=== PATIENT | female | born 1945 | race African-American/Black ===

== ENCOUNTER 2016-07-24 07:42 | Inpatient (IN) | payer OTHER ==
[2016-07-24 08:35] LABS: URINE MICROSCOPIC NEEDED? NO; URINE SOURCE CLEAN CATCH
[2016-07-24 08:44] LABS: BILIRUBIN URINE NEGATIVE (NEGATIVE); BLOOD URINE NEGATIVE (NEGATIVE); CLARITY CLEAR (CLEAR); COLOR YELLOW; GLUCOSE URINE NEGATIVE (NEGATIVE); LEUKOCYTES URINE NEGATIVE (NEGATIVE); NITRITE URINE NEGATIVE (NEGATIVE); PROTEIN URINE NEGATIVE (NEGATIVE); SP GRAVITY URINE 1.005; UROBILINOGEN URINE NORMAL
--- NOTE | 2016-07-24 08:44 | PROVIDER DOCUMENTATION ---
HPI-Abdominal Pain/GI Problem - General Source: patient - History of Present Illness-ABD Nature of Presenting Problems: pt has left side abdominal pain x 2 days. no n/v/d, fever, or dysuria. no history of CA or injury to abdomen. Abdominal Pain Onset Location: reports: LUQ, LLQ Quality of Pain: reports: aching Severity in ED: reports: moderate Onset/Duration: reports: gradual, 2 days ago Timing: reports: still present, constant Activities at Onset: reports: none Modifying Factors: improves with: nothing Associated Symptoms: denies: chest pain, cough, diaphoresis, diarrhea, fever/ chills, genitourinary problems, loss of appetite, nausea, vomiting Similar Symptoms Previously?: No Recently seen or treated by another doctor?: No <Fco Laureano - Last Filed: 07/24/16 08:41> <Rojelio Barrios - Last Filed: 07/24/16 12:38> - General Chief Complaint: Flank Pain Stated Complaint: SIDE PAIN Time Seen by Provider: 07/24/16 08:41 Allergies/Adverse Reactions: Patient Allergies Allergy/AdvReac Type Severity Reaction Status Date / Time No Known Allergies Allergy Verified 07/24/16 07:52 Home Medications: Home Medication List Medication Instructions Recorded Confirmed Last Taken Type Home Meds Unobtainable 07/24/16 07/24/16 Unknown History Review of Systems - Adult - REVIEW OF SYSTEMS - ADULT Constitutional: denies: chills, fever Eyes: reports: no symptoms reported Ears, Nose, Mouth & Throat: reports: no symptoms reported Cardiovascular: denies: chest pain, palpitations, syncope Respiratory: denies: cough, dyspnea on exertion, shortness of breath, wheezing Gastrointestinal: reports: abdominal pain. denies: hematemesis, diarrhea, nausea, rectal bleeding, vomiting Genitourinary: denies: dysuria, frequency, hesitency Musculoskeletal: reports: no symptoms reported Integumentary: reports: no symptoms reported Neurological: reports: no symptoms reported Psychiatric: reports: no symptoms reported Endocrine: reports: no symptoms reported Hematologic/Lymphatic: reports: no symptoms reported Allergic/Immunologic: reports: no symptoms reported All Other Systems: Reviewed and Negative <Fco Laureano - Last Filed: 07/24/16 08:41> Past History - Adult - PAST MEDICAL HISTORY-ADULT Review of Records: reports: Old Records Reviewed, Nursing Assessment Review, Medications Reviewed Major Childhood Illnesses: reports: denies history Cardiovascular: reports: denies history Respiratory: reports: denies history Gastrointestinal: reports: denies history Obstetrical/Gynecological: reports: denies history Genitourinary: reports: denies history Musculoskeletal: reports: denies history, other (right arm deformity with contracture) Neurological: reports: denies history Endocrine/Immune: reports: denies history Other Conditions: reports: denies history - PRIOR SURGERIES/PROCEDURES Surgical/Procedure History: reports: appendectomy, cholecystectomy, hysterectomy - PRIOR HOSPITALIZATIONS Prior Hospitalizations: reports: none - IMMUNIZATION STATUS Childhood Immunizations: See Nurse Assessment Flu Vaccine: See Nurse Assessment - FAMILY HISTORY Family History: reviewed, not pertinent - SOCIAL HISTORY Smoking: non-smoker Living Situation: family <Fco Laureano - Last Filed: 07/24/16 08:41> Physical Exam-General - PHYSICAL EXAM-ADULT Initial Vital Signs Reviewed: Yes - CONSTITUTIONAL General Appearance: alert, no apparent distress, obese - EYES Eyes: PERRL/EOMI, pink conjunctivae, fundi clear, no AV nicking - HEAD, EARS, NOSE, MOUTH & THROAT HENMT: normocephalic/atraumatic, moist mucous membranes, normal ENT inspection - NECK Neck: full range of motion, normal inspection - RESPIRATORY Respiratory: lungs clear, normal breath sounds, no respiratory distress, no accessory muscle use - CARDIOVASCULAR Cardiovascular: regular rate, rhythm, no edema, no murmur - GASTROINTESTINAL (ABDOMEN) Abdominal Exam: normal bowel sounds, soft, no organomegaly, no pulsatile mass - MUSCULOSKELETAL Back Exam: no CVA tenderness, no vertebral tenderness Extremity: normal range of motion, normal inspection, no pedal edema - SKIN Integumentary: normal color, warm/dry - NEUROLOGIC Neurologic: grossly normal, no motor/sensory deficits - PSYCHIATRIC Psych/Mental Status: normal mood/affect, normal thought content, normal thought process, oriented x 3 <Fco Laureano - Last Filed: 07/24/16 08:41> Progress - PLAN OF CARE/RESULTS Progress/Plan/Lab Results: plan of care-labs, xray 1229-hospitalist will be paged Vital Signs Temp Pulse Resp BP Pulse Ox 07/24/16 11:05 98.1 F 68 14 179/79 98 07/24/16 07:48 97.8 F 76 18 185/89 99 No Known Allergies Allergy (Verified 07/24/16 07:52) Home Meds Unobtainable 07/24/16 Laboratory 07/24/16 07/24/16 07/24/16 09:30 09:30 08:24 WBC 13.26 H RBC 4.36 Hgb 12.8 Hct 39.9 MCV 91.5 MCH 29.4 MCHC 32.1 L RDW Std Deviation 15.0 H Plt Count 305 MPV 10.8 H Immature Gran % (Auto) 0.2 Neut % (Auto) 68.6 Lymph % (Auto) 23.5 Maury % (Auto) 6.8 Eos % (Auto) 0.7 Baso % (Auto) 0.2 Immature Gran # (Auto) 0.03 Neut # (Auto) 9.11 H Lymph # (Auto) 3.11 Maury # (Auto) 0.90 H Eos # (Auto) 0.09 Baso # (Auto) 0.02 Sodium 141 Potassium 3.8 Chloride 101 Carbon Dioxide 29 Anion Gap 11 BUN 12 Creatinine 0.6 Estimated GFR/1.73 m2 > 60 BUN/Creatinine Ratio 20 Glucose 117 H Calculated Osmolality 282 Calcium 10.1 Total Bilirubin 0.50 AST 17 ALT 10 Alkaline Phosphatase 137 H Total Protein 8.1 Albumin 4.5 Globulin 4.0 Albumin/Globulin Ratio 1.0 Urine Source CLEAN CATCH Urine Color YELLOW Urine Clarity CLEAR Urine pH 8.0 Ur Specific Sherwood 1.005 Urine Protein NEGATIVE Urine Ketones NEGATIVE Urine Blood NEGATIVE Urine Nitrite NEGATIVE Urine Bilirubin NEGATIVE Urine Urobilinogen NORMAL Urine WBC NEGATIVE Urine Glucose NEGATIVE Orders Category Date Time Status Saline Loc NOW Care 07/24/16 09:54 Active ABDOMEN/PELVIS W/CONTRAST [CT] Stat Exams 07/24/16 09:51 Draft FLAT/UPRIGHT ABD/1 VIEW CHEST [RAD] Stat Exams 07/24/16 09:03 Completed CBC WITH DIFF [HEME] Stat Lab 07/24/16 09:30 Completed COMPREHENSIVE METABOLIC PANEL [CHEM] Stat Lab 07/24/16 09:[address] [URINALYSIS] Stat Lab 07/24/16 08:24 Completed Hydrocodone/APAP 5 mg/325 mg [Plano-5] Med 07/24/16 10:47 Discontinued 1 each PO NOW ONE - XRAY 1 XRAY Study: Chest, Abdomen Impression: Normal XRAY Interpretation: nad - CT/MRI 1 CT Study: Angiogram Impression: Abnormal CT Results: Sigmoid Diverticulitis no abscess, no mass - CONSULTS/PCP/HOSPITALIST Notification #1 *Consult/PCP/Hospitalist*: ( paper cone grader for hospitalist Time Discussed: 12:38 Consult Disposition: Admit <Rojelio Barrios - Last Filed: 07/24/16 12:38> Departure <Fco Laureano - Last Filed: 07/24/16 08:41> - Departure Time of Disposition Order: 12:38 Certified Medical Emergency: Emergent <Rojelio Barrios - Last Filed: 07/24/16 12:38> - Departure DIAGNOSIS: Sigmoid diverticulitis Abdominal pain Qualifiers: Abdominal location: left lower quadrant Qualified Code(s): R10.32 - Left lower quadrant pain Disposition: ADMITTED INPATIENT 09 Condition: Stable Attestation - Scribe Verification/Attestation Scribe:: Rojelio Barrios Acting as Scribe for:: Fco Laureano Scribe documention review:: This chart was documented by a scribe and accurately reflects the service the provider performed and the decisions made by the provider. <Rojelio Barrios - Last Filed: 07/24/16 12:38> Physician Attestation - Physician Attestation I, the provider, attest to the following statement:: Fco Laureano Physician documentation Attestation:: This documentation recorded by the scribe accurately reflects the service I personally performed and the decisions made by me. <Rojelio Barrios - Last Filed: 07/24/16 12:38>
[2016-07-24 09:41] LABS: MANUAL DIFF NEEDED? NO
[2016-07-24 09:43] LABS: BASO% 0.2 % (0.0-0.8); EOS# 0.09 X1000 (0.0-0.7); EOS% 0.7 % (0.0-10.0); HEMATOCRIT 39.9 % (37.0-47.0); HEMOGLOBIN 12.8 g/dL (12.0-16.0); IMM GRAN# 0.03 X1000 (0.0-0.04); IMM GRAN% 0.2 % (0.0-0.5); LYMPH# 3.11 X1000 (1.2-3.4); LYMPH% 23.5 % (20.5-51.1); MCH 29.4 PG (27-31); MCHC 32.1 g/dL (33-37); MCV 91.5 FL (81-99); MONO% 6.8 % (1.7-9.3); MPV 10.8 FL (7.4-10.4); NEUT% 68.6 % (42.2-75.2); PLT 305 X1000 (130-400); RBC 4.36 XMIL (4.2-5.4)
--- NOTE | 2016-07-24 09:59 | Diag Imaging Result Document ---
PROCEDURE NAME: FLAT/UPRIGHT ABD/1 VIEW CHEST - 07/24/2016 SUPINE UPRIGHT ABDOMEN AND ONE-VIEW CHEST: COMPARISON: 09/21/2015. FINDINGS: The bowel gas pattern appears nonspecific and nonobstructive. There are a few air- fluid levels on the upright view, but there is no substantial gaseous bowel distention identified. There is no free air identified. There are multiple phleboliths noted in the pelvis similar to the previous exam. Upright chest shows upper range of normal heart size. There is mild tortuosity of the thoracic aorta. The lungs appear clear. There is no pleural effusion or pneumothorax seen. There is upper thoracic dextroscoliosis noted. IMPRESSION: Nonspecific bowel gas pattern. No evidence of acute cardiopulmonary disease.
[2016-07-24 10:09] LABS: AGAP 11; ALBUMIN 4.5 g/dL (3.5-5.0); ALKALINE PHOSPHATASE 137 U/L (32-104); BUN 12 mg/dL (8-22); CALCIUM 10.1 mg/dL (8.8-10.2); CHLORIDE 101 mmol/L (98-107); COSMO 282; GOT 17 U/L (10-30); GPT 10 U/L (10-36); POTASSIUM 3.8 mmol/L (3.5-5.1); SODIUM 141 mmol/L (136-145); TCO2 29 mmol/L (25-35); TOTAL PROTEIN 8.1 g/dL (6.3-8.3)
[2016-07-24] MEDS ORDERED: NORCO-5 PO ONE (10:47)
--- NOTE | 2016-07-24 12:28 | Diag Imaging Result Document ---
PROCEDURE NAME: ABDOMEN/PELVIS W/CONTRAST - 07/24/2016 CT ABDOMEN AND PELVIS WITH CONTRAST: TECHNIQUE: Exam performed with oral and intravenous contrast. A dose reduction protocol was used. COMPARISON: No comparison exam. FINDINGS: The visualized lung bases appear essentially clear. There is a calcified granuloma in the liver from old granulomatous disease. There are no other substantial abnormalities of the liver, spleen, adrenal glands, or pancreas identified. The gallbladder is surgically absent. The common bile duct is distended which likely relates to the post-cholecystectomy state. There is no substantial intrahepatic biliary ductal dilatation seen. There are scattered small low-density lesions in the kidneys which may represent cysts. The bilateral kidneys otherwise enhance homogeneously. There is no hydronephrosis. There are nonspecific small retroperitoneal lymph nodes. There are no substantially enlarged lymph nodes identified. There are atherosclerotic calcifications noted. There are lumbar spine degenerative changes also noted. There is no evidence of bowel obstruction. While the clinical history suggests that the patient has had previous appendectomy, the appendix appears to be present and appears normal. There are numerous colonic diverticula. There is mild inflammation at the proximal sigmoid colon which is compatible with diverticulitis. There is no abscess identified. There is no free air identified. IMPRESSION: 1. Diverticulitis at proximal sigmoid colon. No abscess. No free air. 2. Distended common bile duct which likely relates to the post-cholecystectomy state. 3. Scattered small low-density lesions in the kidneys which may represent cysts. 4. Atherosclerotic calcifications and lumbar spine degenerative changes noted. Verbal results provided to Dr. Laureano at 12:05 p.m. on 07/24/2016.
[2016-07-24] MEDS ORDERED: TYLENOL WITH CODEINE #3 PO PRN (14:00)
[2016-07-24] MEDS ORDERED: ZOFRAN IV PRN (14:00)
[2016-07-24] MEDS ORDERED: LEVAQUIN 500 MG/D5W 100 ML IV ONE (14:00)
[2016-07-24] MEDS ORDERED: TYLENOL PO PRN (14:00)
[2016-07-24] MEDS ORDERED: NS 500 ML IV SCH (14:45)
[2016-07-24] MEDS: FLAGYL 500 MG/NS 100 ML IV SCH ×3 (16:32→21:15)
[2016-07-24] MEDS ORDERED: HYDROXYZINE PO PRN (17:41)
[2016-07-24] MEDS ORDERED: NS 1,000 ML IV SCH (17:45)
[2016-07-24] MEDS ORDERED: APRESOLINE IV PRN ×2 (18:18→21:11)
[2016-07-24] MEDS ORDERED: MORPHINE IV PRN (18:18)
[2016-07-24] MEDS ORDERED: SODIUM CHLORIDE 0.9% INJ SCH (18:30)
[2016-07-24] MEDS: NS 1,000 ML IV SCH (18:33)
[2016-07-24] MEDS: PROTONIX IV SCH (18:36)
--- NOTE | 2016-07-24 18:47 | HISTORY AND PHYSICAL ---
PRIMARY CARE PHYSICIAN: Dr. Beverly Tena. CHIEF COMPLAINT: Left lower quadrant pain. HISTORY OF PRESENT ILLNESS: This is a 71-year-old female with a history of hypertension, diabetes mellitus who presents to the emergency room complaining of left lower quadrant pain for about 24 hours. She describes this as a crampy type pain that is a 10/10 at its worst and a 2 to 3/10 at its best. She has had no vomiting. She has had some nausea. She did have a bowel movement yesterday and she is passing gas. CT of the abdomen and pelvis revealed diverticulitis of the proximal sigmoid colon with no abscess and no free air. There is no evidence of obstruction. She has a white count of 13.2. She is being admitted for further evaluation and treatment. PAST MEDICAL HISTORY: Diabetes mellitus, hypertension. PAST SURGICAL HISTORY: Appendectomy, cholecystectomy and hysterectomy. SOCIAL HISTORY: She denies alcohol, tobacco, or illicit drug use. She does have children that live close and are very active in her care. ALLERGIES: No known drug allergies. HOME MEDICATIONS: Actos 30 mg daily, irbesartan 150 daily, hydroxyzine 50 p.r.n., Blanco 7.5/325 q.4-6 hours as needed, Voltaren gel 2 g topical b.i.d., Lipitor 40 at bedtime. REVIEW OF SYSTEMS: A 14 point review of systems is discussed with patient with pertinent positives stated in HPI. She denies chest pain, palpitations, vomiting, black or bloody vomitus, black or bloody stools, any diarrhea, constipation, any shortness of breath, PND, orthopnea, any hematuria, dysuria, frequency, urgency. PHYSICAL EXAMINATION: GENERAL: This is a 71-year-old female who is lying in the bed in mild distress. VITAL SIGNS: Blood pressure is 179/79 with a heart rate of 84, respirations are 18, temperature is 98.4 degrees oral with room air saturations 100%. HEENT: Head is normocephalic, atraumatic. Pupils equal, round, react to light. EOMs are intact. Sclerae anicteric. Mucous membranes are dry. NECK: Supple. Trachea midline. CARDIOVASCULAR: Regular rate and rhythm. S1 and S2 appreciated. PULMONARY: Breath sounds are clear. No increased work of breathing noted. Chest does rise and fall symmetric with respiration. GASTROINTESTINAL: Abdomen is soft. It is generalized tenderness to palpation, nondistended with bowel sounds in all 4 quadrants. BACK: No CVAT. No spine tenderness. : Deferred. MUSCULOSKELETAL: Good range of motion to lower extremities, left arm. Right upper extremity does have deformity with contracture. NEUROLOGIC: She is alert and oriented x3. Cranial nerves 2-12 grossly intact. EXTREMITIES: No clubbing, cyanosis or edema. Pulses are palpable. Calves are nontender. DIAGNOSTICS: WBC is 13.2 with a hemoglobin of 12.8, hematocrit 39.9 and platelets of 305,000. Sodium is 141, potassium 3.8, BUN 12, creatinine 0.6, glucose of 117, alkaline phosphatase is 137. CT of the abdomen and pelvis revealed diverticulitis at the sigmoid colon with no obstruction. Abdominal x-ray revealed nonspecific bowel gas pattern. Chest shows clear lungs, normal heart size, no pleural effusion or pneumothorax seen. ASSESSMENT AND PLAN: 1. Sigmoid diverticulitis. 2. Leukocytosis. 3. Abdominal pain. 4. Diabetes mellitus. 5. Hypertension. She will be admitted to the hospital. We will place her on telemetry. She will receive IV hydration with pain and nausea control, Flagyl and Levaquin IV. Will cover blood sugars pattern blood glucose with sliding scale insulin, use hydralazine p.r.n. for hypertension. The patient did eat [employer] just after coming to the floor. This did increase her pain. I did discuss with her the need for being NPO. She was educated on diverticulosis as well as diverticulitis. She is aware of that until this resolves she will have pain, the pain will increase with p.o. intake. At present the patient states she is passing gas. We will monitor. Patient's daughters are in the room. They understand her diagnoses and treatment plan. For DVT prophylaxis will use SCDs. For GI prophylaxis will use Protonix. Further treatments pending hospital course. Dictated by CHAS Crisostomo for Bret Portillo MD
[2016-07-24] MEDS: VOLTAREN 1% GEL TOP SCH (20:52)
[2016-07-24] MEDS ORDERED: LIPITOR PO SCH (21:00)
[2016-07-24] MEDS: HUMALOG DOSE (PARKWAY) SUBQ SCH (21:52)
[2016-07-25] MEDS: FLAGYL 500 MG/NS 100 ML IV SCH ×4 (04:03→21:19)
[2016-07-25 05:53] LABS: HEMATOCRIT 34.2 % (37.0-47.0); MCHC 32.2 g/dL (33-37); MCV 90.2 FL (81-99); MPV 11.1 FL (7.4-10.4); RBC 3.79 XMIL (4.2-5.4)
[2016-07-25 06:10] LABS: AGAP 12; BUN 10 mg/dL (8-22); CALCIUM 8.9 mg/dL (8.8-10.2); CHLORIDE 104 mmol/L (98-107); POTASSIUM 3.3 mmol/L (3.5-5.1); SODIUM 141 mmol/L (136-145); TCO2 25 mmol/L (25-35)
[2016-07-25] MEDS: HUMALOG DOSE (PARKWAY) SUBQ SCH ×4 (06:26→21:21)
[2016-07-25] MEDS: NS 1,000 ML IV SCH ×3 (06:26→21:19)
[2016-07-25] MEDS ORDERED: AVAPRO PO SCH (09:00)
[2016-07-25] MEDS ORDERED: ACTOS PO SCH (09:00)
[2016-07-25] MEDS: VOLTAREN 1% GEL TOP SCH ×2 (09:49→21:21)
[2016-07-25 10:08] LABS: COSMO 281
--- NOTE | 2016-07-25 11:22 | PROGRESS NOTE ---
DATE: 07/25/2016 SUBJECTIVE: Patient notes that she is feeling much better after not eating last night. She had eaten some fried fatty food after coming into the hospital because her family stated that she should be allowed to eat what she wanted. Unfortunately as expected this caused increased abdominal pain, nausea, no real vomiting but lots of cramping. OBJECTIVE: Vital Signs: Reviewed. Temperature 98 degrees, pulse 85, respiratory 20. BP 133/58. General: Patient well developed, well nourished. Currently in no real respiratory distress. She is awake, alert. Neck: Supple. CV: Regular rate. Chest: Relatively clear. Abdomen: Soft nondistended. Extremities: Moves all extremities. Neurologic: No changes. Skin: Warm and dry. No rashes. LABS: Reviewed. WBC is 10. CBC is essentially normal. ASSESSMENT: 1. Mild hypokalemia. Will replace. 2. Leukocytosis resolved. 3. Diverticulitis. Continue antibiotics. 4. Abdominal pain secondary to the sigmoid diverticulitis. 5. Diabetes with mild hyperglycemia. 6. Hypertension. The patient's blood pressure is elevated this morning but she has not yet received her blood pressure medication. PLAN: Will continue patient on a clear liquid diet today and hopefully will be able to advance to full liquids if her pain improves. We will continue her current medications. Continue to follow. Hopefully home in 1-2 days.
[2016-07-25] MEDS ORDERED: LEVAQUIN 500 MG/D5W 100 ML IV SCH (14:00)
[2016-07-25] MEDS: PROTONIX IV SCH (17:31)
[2016-07-26] MEDS: NS 1,000 ML IV SCH (01:02)
[2016-07-26] MEDS: FLAGYL 500 MG/NS 100 ML IV SCH ×2 (03:53→10:45)
[2016-07-26 06:01] VITALS: BP 173/63
[2016-07-26] MEDS: HUMALOG DOSE (PARKWAY) SUBQ SCH ×2 (06:08→10:47)
[2016-07-26] MEDS: VOLTAREN 1% GEL TOP SCH (08:30)
[2016-07-26] MEDS ORDERED: LEVAQUIN PO SCH (11:00)
--- NOTE | 2016-07-26 13:24 | PROGRESS NOTE ---
DATE: 07/26/2016 SUBJECTIVE: The patient notes she is feeling much better. She is having less abdominal pain. Denies any nausea or vomiting. Denies any GI or issues otherwise. PHYSICAL EXAMINATION: Vital Signs: Reviewed. Temperature 98 degrees, pulse 71, respiratory 18, blood pressure 173/63. General: Patient is well developed, well nourished. She is in no respiratory distress. She is awake and alert. Neck: Supple. Cardiovascular: Regular rate. Chest: Relatively clear. Abdomen: Soft. Positive bowel sounds. Nontender. Nondistended. Extremities: Moves all extremities. LABS: Stable. ASSESSMENT: 1. Diverticulitis. 2. Hyponatremia. 3. Nausea and vomiting, resolved. 4. Hypertension. 5. Leukocytosis. 6. Diabetes. PLAN: We will advance the patient to a GI soft diet. We will change coordinator to p.o. antibiotics. We will continue her home blood pressure medications. Certainly her Avapro may need to be increased. Discussed with the patient that she is feeling better, she tolerates a GI diet, that we certainly could discharge home today. If not, she should be able to discharge tomorrow. We will continue to follow.
[2016-07-26] MEDS ORDERED: FLAGYL PO SCH (18:00)
--- NOTE | 2016-07-28 05:20 | DISCHARGE SUMMARY ---
ADMISSION DATE: 07/24/2016 DISCHARGE DATE: 07/26/2016 DISCHARGE DIAGNOSES: 1. Diverticulitis, sigmoid, improved. 2. Leukocytosis, resolved. 3. Abdominal pain, resolved. 4. Diabetes, stable. 5. Hypertension, stable. CONSULTATIONS: None. PROCEDURES: None. BRIEF HOSPITAL COURSE: Patient is a 71-year-old female, who was admitted as noted in the history of present illness, treated in the usual fashion. Placed on IV antibiotics and kept NPO. She continued to improve. Her diet was advanced and her antibiotics were changed to p.o. On discharge, she was awake, alert. She was tolerating a GI soft diet without any difficulty. Was asked to go home. DISPOSITION: The patient will be discharged home. She will follow up with her primary care physician, Dr. Ngoc Tena, in 1-2 weeks. She certainly will likely need a colonoscopy as an outpatient to ensure complete resolution of her current symptoms. Thankfully, she is in no distress and is feeling better. TIME SPENT: Thirty-four minutes was spent in discharge planning and instructions.
== END 2016-07-26 16:47 | disposition home or self-care (01) | DRG 392 ==
LOC: P.ED 07:42 → P.MEDSURG 13:43
PROVIDERS: ADMIT Internal Medicine; ATTEND Family Medicine
DX: K57.32 Diverticulitis of large intestine without perforation or abscess without bleeding (principal); E11.65 Type 2 diabetes mellitus with hyperglycemia; I10 Essential (primary) hypertension; E87.6 Hypokalemia; Z79.899 Other long term (current) drug therapy
CPT/HCPCS: 36415; 74022; 74177; 80048; 80053; 82948; 85025; 85027; 94761; C9113; J1815; J2270; J7030; J7040; Q9967; S0030; S0164